=== PATIENT | female | born 1960 | race Caucasian/White ===

== ENCOUNTER 2019-12-29 10:36 | Emergency (ER) | payer OTHER, SELFPAY ==
--- NOTE | ~2019-12-29 | CT_ITS ---
EXAMINATION: CT abdomen pelvis w con INDICATION: Abdominal pain and diarrhea TECHNIQUE: Computed tomographic images of the abdomen and pelvis were obtained after the administrati on of 100 cc of Omnipaque 350 intravenous contrast. The dose-length product (DLP) was 230.76 mGy-cm. Automated exposure control and iterative reconstruction technique were employed. COMPARISON: 11/18/2013 FINDINGS: The lung bases are clear. The heart size is normal. There is a small sliding hiatal hernia. The liver, spleen, pancreas, gallbladder, and adrenal glands are normal. The kidneys are unremarkabl e. There is mild bilateral hydronephrosis, likely due to bladder distention. No pathologically enlarg ed abdominal or pelvic lymph nodes are identified. There is no free intraperitoneal gas or evidence o f bowel obstruction. There is bowel wall thickening and inflammation involving a short segment of the terminal ileum as well as the ascending colon. Changes of appendectomy are noted. There is grade 1 a nterolisthesis of L5 on S1 with bilateral L5 pars defects. A small fat-containing umbilical hernia is noted. IMPRESSION: 1. Colitis of the ascending colon with a short segment of terminal ileitis. Reviewed, dictated and finalized at location A.
[2019-12-29 10:40] VITALS: BP 110/70; PULSE 92; RESP 19; TEMP 36.9; O2SAT 97
--- NOTE | 2019-12-29 11:29 | ED.ABDPAIN ---
HPI - Abdominal Pain General Chief Complaint: Abdominal Pain Stated Complaint: aches/fever/vomiting Time Seen by Provider: 12/29/19 11:18 Source: patient Mode of arrival: ambulatory Limitations: no limitations History of Present Illness HPI narrative: Patient presents to the emergency department for crampy abdominal pain x3 days. Also reports diarrhea. Denies fever, nausea, vomiting, hematochezia, or dysuria. Related Data Home Medications Medication Instructions Recorded Confirmed levothyroxine 12/29/19 12/29/19 lorazepam 12/29/19 omeprazole 12/29/19 pravastatin 12/29/19 rizatriptan mg 12/29/19 Allergies Allergy/AdvReac Type Severity Reaction Status Date / Time Sulfa (Sulfonamide Allergy Unknown Itching Verified 12/29/19 11:13 Antibiotics) vancomycin Allergy Unknown Itching Verified 12/29/19 11:13 Review of Systems Review of Systems: Narrative: CONSTITUTIONAL: Denies fever GASTROINTESTINAL: Reports abdominal pain, diarrhea. Denies nausea, vomiting GENITOURINARY: Denies dysuria or hematuria. All systems reviewed & are unremarkable except as noted in HPI and below PMFSH Past Medical History Medical History (Updated 12/29/19 @ 15:12 by Bety Lima PA-C) History of gastroesophageal reflux (GERD) History of hyperlipidemia History of hypothyroidism History of migraine Social History Social History Smoking status: Never smoker Alcohol intake: current Gender identity (if verbalized by the patient): Female Exam Narrative: Exam Narrative: GENERAL: Well-appearing, well-nourished, and in no acute distress. HEAD: Normocephalic, atraumatic. EYES: EOMI. CHEST: Clear to auscultation. No respiratory distress. No wheezes rales or rhonchi HEART: Regular rate and rhythm. No murmur heard. Normal peripheral pulses. ABDOMEN: Soft, nondistended, normal active bowel sounds. Mild tenderness to palpation throughout the abdomen, without guarding EXTREMITIES: Normal range of motion. No edema. SKIN: Warm, dry, no rash. NEURO: No focal deficits. Alert and oriented x3. PSYCH: Normal mood and affect Course Consultations Consultation #1: poke with GI, Dr. Duggan about patient and work-up. Patient will be started on antibiotics and will follow-up in clinic. Date: 12/29/19 Time: 15:16 Vital Signs Vital signs: Vital Signs Temperature 98.4 F 12/29/19 10:40 Pulse Rate 92 12/29/19 10:40 Respiratory Rate 19 12/29/19 10:40 Blood Pressure 110/70 12/29/19 10:40 Pulse Oximetry 97 12/29/19 10:40 Temperature 98.4 F 12/29/19 10:40 Pulse Rate 92 12/29/19 10:40 Respiratory Rate 19 12/29/19 10:40 Blood Pressure 110/70 12/29/19 10:40 Pulse Oximetry 97 12/29/19 10:40 MDM - Abdominal Pain MDM Narrative Medical decision making narrative: Patient presents the emergency department for crampy abdominal pain and diarrhea x3 days. Patient is afebrile and nontoxic-appearing. CBC is without leukocytosis. Metabolic panel without concerning findings. Lactic acid is not elevated. UA with 4-6 white blood cells, but also moderate squamous epithelial cells. Likely not a clean-catch. Patient denies any urinary symptoms. CT scan of the abdomen and pelvis shows colitis of the ascending colon with a short segment of terminal ileitis. Spoke with GI, Dr. Duggan about patient and work-up. Patient will be started on antibiotics and will follow-up in clinic. Patient is stable and felt appropriate for the outpatient evaluation. She was given warnings to return to the ER Lab Data Attestation: I reviewed the patient's lab results. Result diagrams: 12/29/19 11:28 12/29/19 12:26 Labs: Lab Results 12/29/19 12/29/19 12/29/19 Range/Units 11:28 11:28 11:43 WBC 6.8 (4.5-10.0) K/mm3 RBC 4.79 (4.2-5.4) M/mm3 Hgb 15.1 H (12.0-15.0) g/dL Hct 44.2 (37.0-47.0) % MCV 92.3 (80-100) fl MCH 31.5 (26-34) pg MCHC 34.2 (32-36) g/dl R
[2019-12-29 11:44] LABS: Basophils Absolute Auto 0.1 K/mm3 (0.0-0.1); Basophils Percent Auto 0.7 % (0.2-1.2); Eosinophils Percent Auto 0.6 % (0-4.4); Hematocrit 44.2 % (37.0-47.0); Hemoglobin 15.1 g/dL (12.0-15.0); Immature Granulocyte Absolute 0.03 K/mm3 (0.00-0.031); Immature Granulocyte Percent A 0.4 % (0-0.5); Lymphocytes Absolute Auto 1.61 K/mm3 (0.9-3.2); Lymphocytes Percent Auto 23.7 % (18.3-44.2); Mean Corpuscular HGB Conc 34.2 g/dl (32-36); Mean Corpuscular Hemoglobin 31.5 pg (26-34); Mean Corpuscular Volume 92.3 fl (80-100); Mean Platelet Volume 10.5 fl (7.4-10.4); Monocytes Absolute Auto 0.7 K/mm3 (0.1-0.6); Monocytes Percent Auto 10.9 % (2.6-8.5); Neutrophils Absolute Auto 4.3 K/mm3 (1.3-6.7); Neutrophils Percent Auto 63.7 % (45.5-73.1); Platelet Count Result 198 k/mm3 (150-375); Red Blood Count 4.79 M/mm3 (4.2-5.4); White Blood Count 6.8 K/mm3 (4.5-10.0)
[2019-12-29] MEDS: SODIUM CHLORIDE 0.9% IV 1,000 ML 999 ML IV CONT (11:51)
[2019-12-29 12:01] LABS: Add Urine Microscopic? YES; Appearance Urine Clear (Clear); Bacteria Urine Trace /hpf; Bilirubin Urine Negative (Negative); Blood Urine 1+ (Negative); Color Urine Straw (Yellow); Glucose Urine UA Negative (Negative); Ketones Urine Negative (Negative); Leukocyte Esterase Ur 3+ LEU/UL (Negative); Nitrate Urine Negative (Negative); Protein Urine Negative (Negative); Specific Grav Ur 1.009 (1.001-1.035); Squamous Epithelial Cell Urine Moderate /hpf (Few); Urobilinogen Urine Negative mg/dL (<2.0)
[2019-12-29 12:10] LABS: Lactic Acid Reflex 0.9 mmol/L (0.7-2.1)
[2019-12-29 12:46] LABS: Alanine Aminotransferase 21 U/L (4-35); Albumin Level 4.2 g/dL (3.5-5.1); Alkaline Phosphatase 67 U/L (38-126); Aspartate Amino Transferase 27 U/L (14-36); Bilirubin,Total 0.4 mg/dL (0.2-1.3); Blood Urea Nitrogen 9 mg/dL (7-17); Calcium 8.8 mg/dL (8.4-10.2); Carbon Dioxide 25 mmol/L (22-30); Chloride 103 mmol/L (98-107); Estimated CRCL calculation 55 ml/min; Estimated Glomerular Filt Rate > 60; Glucose 94 mg/dL (65-105); Lipase 53 U/L (23-300); Potassium 4.1 mmol/L (3.4-5.0); Sodium 134 mmol/L (137-145)
[2019-12-29 15:33] VITALS: BP 131/79; PULSE 65; RESP 20; TEMP 36.7; O2SAT 98
== END 2019-12-29 15:34 | disposition home or self-care (01) ==
PROVIDERS: Physician Assistant; Emergency Provider Emergency Medicine; PCP Internal Medicine
DX: K52.9 Noninfective gastroenteritis and colitis, unspecified (principal); E78.5 Hyperlipidemia, unspecified; E03.9 Hypothyroidism, unspecified
CPT/HCPCS: 36415; 74177; 80053; 81001; 83605; 83690; 85025; 85055; 96361; 96365; 99284; J0131; J7030; Q9967

== ENCOUNTER → 2020-02-25 13:03 | Outpatient (CLI) | payer OTHER, SELFPAY ==
--- NOTE | ~2020-02-25 | DEXA_ITS ---
Bone Density Report Name: Janell Cisse Age: 59 Sex: Female Ethnicity: White Date of : 1960 Indication: osteopenia; height loss; hysterectomy;postmenopausal Referring Provider: Emily Thomas Study: Bone densitometry was performed. Exam Date: February 25, 2020 Accession number: [id number] Bone Density: Region BMD T-score Z-score Classification AP Spine (L1-L4) 0.874 -1.6 -0.1 Osteopenia Femoral Neck (Left) 0.685 -1.5 -0.1 Osteopenia Total Hip (Left) 0.894 -0.4 0.6 Normal Femoral Neck (Right) 0.688 -1.4 -0.1 Osteopenia Total Hip (Right) 0.862 -0.7 0.4 Normal Total Hip Mean 0.878 -0.6 0.5 Normal World Health Organization criteria for BMD impression classify patients as: Normal (T-score at or above -1.0), Osteopenia (T-score between -1.0 and -2.5), or Osteoporosis (T-score at or below -2.5). 10-year Fracture Risk(1): Major Osteoporotic Fracture 7.9% Hip Fracture 0.7% Reported Risk Factors: [place] (), Neck BMD=0.688, BMI=23.6 (1) FRAX(R) Version 3.08. Fracture probability calculated for an untreated patient. Fracture probability may be lower if the patient has received treatment. Previous Exams: Region Exam Age BMD T-score BMD Change BMD Change Date g/cm2 vs Baseline vs Previous AP Spine(L1-L4) 02/25/2020 59 0.874 -1.6 0.000 0.004 11/16/2016 56 0.870 -1.6 -0.004 -0.014 01/05/2010 49 0.884 -1.5 0.010 0.010 12/25/2007 47 0.874 -1.6 Total Hip(Left) 02/25/2020 59 0.894 -0.4 0.039* -0.017 11/16/2016 56 0.911 -0.3 0.056* 0.052* 01/05/2010 49 0.859 -0.7 0.004 0.004 12/25/2007 47 0.855 -0.7 Total Hip(Right) 02/25/2020 59 0.862 -0.7 0.015 -0.014 11/16/2016 56 0.877 -0.5 0.030* 0.035* 01/05/2010 49 0.842 -0.8 -0.005 -0.005 12/25/2007 47 0.847 -0.8 *Denotes significance at 95% confidence level, LSC for AP Spine = 0.022 g/cm2, LSC for Total Hip = 0.027 g/cm2 Clinical Information Provided by Patient: Has used the following medications: Vitamin D, Calcium Has the following medical conditions: Hysterectomy Patient maximum height was 61.5 Menopause Age: 32 No regular weight bearing exercise Drinks caffeinated beverages Onset of menses at age 11 Number of children 2 Impression: The patient has low bone ma
--- NOTE | ~2020-02-25 | MM_ITS ---
EXAMINATION: MM screening olga lidia BI w sarah HISTORY: Screening TECHNIQUE: Craniocaudal and mediolateral oblique 3-D tomosynthesis images were obtained and synthetic 2-D images were generated. CAD analysis was submitted and interpreted. COMPARISON: Comparison to multiple prior studies sequentially, with oldest reviewed study dated 02/2016. BREAST PARENCHYMAL COMPOSITION: There are scattered areas of fibroglandular density. FINDINGS: There is no evidence of suspicious mass, calcification, or architectural distortion to sugg est malignancy in either breast. There has been no suspicious interval change. IMPRESSION: 1. No mammographic evidence of malignancy. 2. Recommend routine screening mammography in one year. BI-RADS Category 1: Negative Reviewed, dictated and finalized at location A.
== END ==
PROVIDERS: PCP Internal Medicine; Visit Provider Obstetrics & Gynecology
DX: Z12.31 Encounter for screening mammogram for malignant neoplasm of breast (principal); M85.88 Other specified disorders of bone density and structure, other site; M85.852 Other specified disorders of bone density and structure, left thigh; M85.851 Other specified disorders of bone density and structure, right thigh
CPT/HCPCS: 77063; 77067; 77080

== ENCOUNTER 2020-03-20 01:10 | Outpatient (CLI) | payer OTHER, SELFPAY ==
[2020-03-20 17:59] LABS: SARS-CoV-2 RNA PCR Negative
== END 2020-03-20 01:11 | disposition home or self-care (01) ==
LOC: ANHCOVIDDT 01:11
PROVIDERS: PCP Internal Medicine; Visit Provider Internal Medicine Gastroenterology
DX: Z01.812 Encounter for preprocedural laboratory examination (principal); Z20.828 Contact with and (suspected) exposure to other viral communicable diseases
CPT/HCPCS: 87635; C9803; U0003

== ENCOUNTER 2020-03-23 00:27 | Day surgery (SDC) | payer OTHER, SELFPAY ==
[2020-03-16 14:23] VITALS: BMI 22.8
[2020-03-23 12:24] VITALS: BP 140/77; PULSE 107; RESP 16; TEMP 36.8; O2SAT 99
[2020-03-23] MEDS: LACTATED RINGERS 1,000 ML 150 ML IV CONT (12:29)
--- NOTE | 2020-03-23 13:45 | WPDANESEPPF ---
Anes - Initial Pre Proc Eval Procedure: Operation Date: 03/23/20 12:15 Proposed Procedures p Esophagogastroduodenoscopy & Colonoscopy - Bakari Ramirez MD Date/Time: 03/23/20 13:45 Surgeon: Bakari Ramirez MD Pre Op Diagnosis: Epigastric pain, Gerd, Non Infective Gastroenterit Patient Data Age: 59 Gender: F Height: 5 ft 1 in Weight: 52.8 kg Last Vital Signs Temp 98.3 F 03/23/20 12:24 Pulse 107 H 03/23/20 12:24 Resp 16 03/23/20 12:24 BP 140/77 03/23/20 12:24 Pulse Ox 99 03/23/20 12:24 Allergies Allergy/AdvReac Type Severity Reaction Status Date / Time Sulfa (Sulfonamide Allergy Unknown Itching Verified 03/23/20 12:23 Antibiotics) vancomycin Allergy Unknown Itching Verified 03/23/20 12:23 Home Medications Medication Instructions Recorded Confirmed Type levothyroxine 75 mcg PO DAILY 12/29/19 03/16/20 History lorazepam 0.5 mg PO DAILY PRN 12/29/19 03/16/20 History omeprazole 40 mg PO HS 12/29/19 03/16/20 History pravastatin 40 mg PO HS 12/29/19 03/16/20 History rizatriptan 10 mg PO DAILY PRN 12/29/19 03/16/20 History hydrocodone 5 mg-acetaminophen 325 1 tablet PO Q8H PRN 02/26/20 03/16/20 History mg tablet peg 3350-electrolytes 236 240 ml PO Q10M #4000 ml 03/03/20 03/16/20 Rx gram-22.74 gram-6.74 gram-5.86 gram solution estradiol [Estrace] 1 g VAGINAL 3XW 03/16/20 03/16/20 History Patient hx anesthesia problems: none Family hx anesthesia problems: none PMFSH Past Medical History Medical History (Updated 02/26/20 @ 09:44 by Bakari Ramirez MD) Acute colitis COVID-19 ruled out Diarrhea Epigastric pain Flu-like symptoms GERD (gastroesophageal reflux disease) History of gastroesophageal reflux (GERD) History of hyperlipidemia History of hypothyroidism History of migraine Hypothyroid Lower abdominal pain Surgical History Surgical History History of appendectomy Status post spinal disc removal Social History Social History Smoking status: Never smoker Alcohol intake: current Living arrangements: with family Gender identity (if verbalized by the patient): Female Spiritual care concerns: No Anes - Eval Final PreProcedure Day of Procedure 03/23/20 13:45 Patient weight: normal Heart: regular rate and rhythm Lungs: clear to auscultation Airway: Mallampati scale class II Neurological: alert and oriented Last oral intake: >/= 8 hours ASA classification: II Emergent: no Anesthetic plan: proceed Anesthesia type and monitoring: general GIVS and standard monitoring Informed Consent: The patient's anesthetic plan and its attendant risks and benefits were discussed with the patient/family/POA. Questions were solicited and answers provided to the satisfaction of the patient/family/POA.
--- NOTE | 2020-03-23 15:16 | WPDHPUPDATE1 ---
History and Physical Update Update Date/Time: 03/23/20 15:16 History and Physical has been reviewed, including an updated exam of the patient. There are NO changes in the patient's condition. Risks, benefits, and alternatives have been discussed and questions answered. Patient agrees to proceed with procedure.
[2020-03-23] MEDS: BENZOCAINE (*SP) 60 ML SPRAY CAN (HURRICAINE) 1 SPRAY MUCOUS MEM (16:01)
[2020-03-23 16:28] VITALS: BP 88/60; PULSE 80; RESP 20; O2SAT 97
[2020-03-23 16:38] VITALS: BP 105/68; PULSE 61; RESP 15; O2SAT 100
[2020-03-23 16:48] VITALS: BP 120/63; PULSE 60; RESP 14; O2SAT 100
== END 2020-03-23 16:58 | disposition home or self-care (01) ==
PROVIDERS: PCP Internal Medicine; Visit Provider Internal Medicine Gastroenterology
PROC: 0DJ08ZZ Inspection of Upper Intestinal Tract, Via Natural or Artificial Opening Endoscopic (ICD-10-PCS; CPT 43235; principal; 2020-03-23 12:15)
DX: Z09 Encounter for follow-up examination after completed treatment for conditions other than malignant neoplasm (principal); Z87.19 Personal history of other diseases of the digestive system; K21.9 Gastro-esophageal reflux disease without esophagitis; E03.9 Hypothyroidism, unspecified; E78.5 Hyperlipidemia, unspecified
CPT/HCPCS: 45378; 88305; J2704; J7120

== ENCOUNTER 2021-04-14 13:30 | Outpatient (RCR) | payer OTHER, SELFPAY ==
--- NOTE | 2021-03-01 14:06 | PTOPEVAL ---
INITIAL PHYSICAL THERAPY EVALUATION and PLAN OF CARE Thank you for referring Janell Cisse to [facility].? Janell is scheduled to be seen for physical therapy? 1x/week for 6 weeks. Please review, sign, date and return this plan of care JENY. I agree with and certify that the following plan of care is medically necessary. Referring Physician Date Admitting Provider: Attending Provider: Emily Thomas MD Referring Provider: *PT Outpatient Evaluation Start: 03/01/21 12:46 Freq: Status: Active Protocol: Document 03/01/21 12:43 CHELSIE (Rec: 03/01/21 14:06 CHELSIE [id number]) Therapy Assessment Status Assessment Status Assessment Status Evaluation Outpatient Past Medical History Past Medical History Source of Past Medical History Recalled from Previous Visit, Confirmed with Patient/Family Neurological History Hx Migraine Yes Cardiovascular History Hx Hypercholesterolemia Yes Respiratory History Hx Respiratory Disorders No Significant History Gastrointestinal History Hx Colitis Yes: December 2019 Hx Gastroesophageal Reflux Disease Yes Hx Hemorrhoids Yes Genitourinary History Hx Genitourinary Disorders No Significant History Musculoskeletal History Hx Arthritis Yes Hx Spinal Surgery Yes: 1999 C5-6 disc removal Hx Other Musculoskeletal Disorders Yes: spondylolithesis Hematological History Hx Hematological Disorders No Significant History Endocrine History Hx Hypothyroidism Yes Hx Other Endocrine Disorders Yes: Vasculitis HEENT History Hx Tonsillectomy Yes Hx Other HEENT Disorders Yes: Sinus surgery x2 Integumentary History Hx Shingles Yes Reproductive History Hx Hysterectomy Yes: 1989 Psychosocial History Hx Anxiety Yes Pain History Has Past Pain Affected Your Daily Life Yes: Lower back pain-chronic Anesthesia History Hx Anesthesia Reactions No Significant History Evaluation Information Problem Diagnosis herniation of rectum into vagina Onset earlier this year Subjective Information Janell reports using a ring for Query Text:As Reported By Patient/ estrogen replacement - then Family took it out - began to feel something in vaginal area. Will feel the pressure/ discomfort more times than others. Always better in the morning. Doesn't have a history of constipation - several years in the past - did notice more of a prob
--- NOTE | 2021-03-01 16:01 | PTOPEVAL ---
INITIAL PHYSICAL THERAPY EVALUATION AND PLAN OF CARE Thank you for referring Janlel Cisse to [facility].? Janell is scheduled to be seen for physical therapy? 1x/week for 6 weeks. Please review, sign, date and return this plan of care JENY. I agree with and certify that the following plan of care is medically necessary. Referring Physician Date Admitting Provider: Attending Provider: Emily Thomas MD Referring Provider: *PT Outpatient Evaluation Start: 03/01/21 12:46 Freq: Status: Active Protocol: Document 03/01/21 12:43 CHELSIE (Rec: 03/01/21 14:06 CHELSIE [id number]) Therapy Assessment Status Assessment Status Assessment Status Evaluation Outpatient Past Medical History Past Medical History Source of Past Medical History Recalled from Previous Visit, Confirmed with Patient/Family Neurological History Hx Migraine Yes Cardiovascular History Hx Hypercholesterolemia Yes Respiratory History Hx Respiratory Disorders No Significant History Gastrointestinal History Hx Colitis Yes: December 2019 Hx Gastroesophageal Reflux Disease Yes Hx Hemorrhoids Yes Genitourinary History Hx Genitourinary Disorders No Significant History Musculoskeletal History Hx Arthritis Yes Hx Spinal Surgery Yes: 1999 C5-6 disc removal Hx Other Musculoskeletal Disorders Yes: spondylolisthesis Hematological History Hx Hematological Disorders No Significant History Endocrine History Hx Hypothyroidism Yes Hx Other Endocrine Disorders Yes: Vasculitis HEENT History Hx Tonsillectomy Yes Hx Other HEENT Disorders Yes: Sinus surgery x2 Integumentary History Hx Shingles Yes Reproductive History Hx Hysterectomy Yes: 1989 Psychosocial History Hx Anxiety Yes Pain History Has Past Pain Affected Your Daily Life Yes: Lower back pain-chronic Anesthesia History Hx Anesthesia Reactions No Significant History Evaluation Information Problem Diagnosis herniation of rectum into vagina Onset earlier this year Subjective Information Janell reports using a ring for Query Text:As Reported By Patient/ estrogen replacement - then Family took it out - began to feel something in vaginal area. Will feel the pressure/ discomfort more times than others. Always better in the morning. Doesn't have a history of constipation - several years in the past - did notice more of a pro
--- NOTE | 2021-03-25 14:49 | PCPTNOTE ---
pt called and cancelled no reason given per assistant engineer.
--- NOTE | 2021-04-14 14:24 | PTOPEVAL ---
PHYSICAL THERAPY DISCHARGE SUMMARY Thank you for referring Janell Cisse to [facility].? Janell has been seen in PT x 6 visits. She has made progress towards goals set. She is to continue with her HEP on a regular basis. I agree with Janell's discharge from PT. Referring Physician Date Admitting Provider: Attending Provider: Emily Thomas MD Referring Provider: Therapy Assessment Status Assessment Status Assessment Status Discharge Evaluation Information Problem Diagnosis herniation of rectum into vagina Subjective Information Janell states that when she is Query Text:As Reported By Patient/ busier or more upright during Family the day while feel the pressure sensation in her vaginal region. Usually she tries to lie down for at least an hour at a time during the day to keep the prolapse reduced towards the end of the day. Doing okay with HEP. Increase awareness present to tighten pelvic floor prior to lifting type of activities. Pain Assessment Timing of Pain Assessment Timing of Pain Assessment Assessment Self Report Self Report Pain Level 0 Pain Score Pain Score 0: Self Report Pelvic Health Evaluation Pelvic Floor Assessment Sustained Levator Ani Strength 4/5 Quick Levator Ani Contraction in 15 8 Seconds Pelvic Health Therapy Pelvic Health Exercise Isolated Levator Ani Contraction sitting 10 ct hold/10 ct relax Query Text:Position, Hold/Relaxation x 10 reps Time, Repetitions Quick Contractions 10 reps x 4 sets Query Text:Position, Repetitions Therapeutic Ball sit- F/B/S/S Cir, CW, CCW, fig Query Text:Movement Direction, 23 august, LAQ x 15 reps ea Repetitions Elevator Techniques [address] hold x5;3fls Query Text:Repetitions, Number of down x5;variable x 5 Steps Going Up, Number of Steps Going Down Resistive 'Shh' Technique long,soft - 5 reps quick, Query Text:Quick, Hard, Long, Soft, hard - 5 reps Number of Repetitions Other Exercises standing plies - tightening Query Text:Record Sets, Repetitions, pelvic floor with knee Resistance and Position extension - reviewed Exercise Limitations Muscle Weakness Response to Exercise Increased Endurance,Increased Strength Exercise Comments discussion again in regards to function of levator ani in relation to
== END 2021-04-15 09:15 | disposition home or self-care (01) ==
LOC: ANHPT 13:30
PROVIDERS: PCP Internal Medicine; Visit Provider Obstetrics & Gynecology
DX: N81.6 Rectocele (principal)
CPT/HCPCS: 97110; 97161

== ENCOUNTER → 2021-04-19 11:00 | Outpatient (CLI) | payer OTHER, SELFPAY ==
--- NOTE | ~2021-04-19 | MM_ITS ---
EXAMINATION: MM screening olga lidia BI w sarah HISTORY: Screening TECHNIQUE: Craniocaudal and mediolateral oblique 3-D tomosynthesis images were obtained and synthetic 2-D images were generated. CAD analysis was submitted and interpreted. COMPARISON: No prior mammogram is available for comparison at this institution. BREAST PARENCHYMAL COMPOSITION: There are scattered areas of fibroglandular density. FINDINGS: Stable benign-appearing mass in the upper central aspect of the right breast allowing for d ifferences of technique. There is no evidence of suspicious mass, calcification, or architectural dis tortion to suggest malignancy in either breast. There has been no suspicious interval change. IMPRESSION: 1. No mammographic evidence of malignancy. 2. Recommend routine screening mammography in one year. BI-RADS Category 2: Benign finding(s). Reviewed, dictated and finalized at location A.
== END ==
PROVIDERS: PCP Internal Medicine; Visit Provider Obstetrics & Gynecology
DX: Z12.31 Encounter for screening mammogram for malignant neoplasm of breast (principal)
CPT/HCPCS: 77063; 77067

== ENCOUNTER → 2022-08-28 16:06 | Outpatient (CLI) | payer OTHER, SELFPAY ==
--- NOTE | ~2022-08-28 | MM_ITS ---
EXAMINATION: MM screening olga lidia BI w sarah HISTORY: Screening mammogram TECHNIQUE: Craniocaudal and mediolateral oblique 3-D tomosynthesis images were obtained and synthetic 2-D images were generated. CAD analysis was submitted and interpreted. COMPARISON: 04/19/2021, 02/25/2020, 11/15/2018 bilateral screening mammogram examinations BREAST PARENCHYMAL COMPOSITION: There are scattered areas of fibroglandular density. FINDINGS: Stable circumscribed approximately 2.7 x 5.7 mm opacity in the central right breast slightl y lateral to the mid sagittal plane. Stable circumscribed approximately 2.6 x 3.7 mm opacity in the mid to upper outer left breast. New 3 mm incompletely circumscribed opacity is noted in the inner mid left breast (craniocaudal Tomos ynthesis image 25/51); DIAGNOSTIC left mammogram and left breast ultrasound examination are recommend ed. IMPRESSION: 1. New 3 mm mass, inner left breast 2. Diagnostic left mammogram and left breast ultrasound examination are recommended BI-RADS Category 0: Incomplete: Needs additional imaging evaluation. Reviewed, dictated and finalized at location A. IMPRESSION: 1. New 3 mm mass, inner left breast 2. Diagnostic left mammogram and left breast ultrasound examination are recomme nded BI-RADS Category 0: Incomplete: Needs additional imaging evaluation.
== END ==
PROVIDERS: PCP Internal Medicine; Visit Provider Obstetrics & Gynecology
DX: Z12.31 Encounter for screening mammogram for malignant neoplasm of breast (principal)
CPT/HCPCS: 77063; 77067

== ENCOUNTER 2022-09-12 12:50 | Outpatient (CLI) | payer OTHER, SELFPAY ==
--- NOTE | ~2022-09-12 | MMUS_ITS ---
EXAMINATION: MM diagnostic olga lidia LT w sarah, US breast LT limited HISTORY: Follow-up left breast mass TECHNIQUE: Additional 3-D tomosynthesis images of the left breast were performed and synthetic 2-D im ages were generated. CAD analysis was submitted and interpreted. High resolution Limited left breast ultrasound was performed. COMPARISON: Comparison to multiple prior studies sequentially, with oldest reviewed study dated 09/05. BREAST PARENCHYMAL COMPOSITION: Breast composed of scattered areas of fibroglandular density FINDINGS: MAMMOGRAPHIC FINDINGS: There is a benign peripherally calcified nodule in the upper inner quadrant of the left breast, consi stent with oil cysts. There are no suspicious masses, calcifications or architectural distortion to s uggest malignancy. The previously noted nodule in the medial aspect of the left breast is not identif ied on the current study. ULTRASOUND: Limited left breast ultrasound: At 9:00, 1 cm from the nipple there is a peripherally calcified hypoe choic mass measuring 5 mm corresponding to the oil cysts seen on mammography. No other masses identif ied. No sonographic evidence for malignancy. IMPRESSION: 1. No evidence for malignancy in the left breast. Benign finding. 2. Routine yearly screening mammogram and regular clinical breast examination are recommended. BI-RADS Category 2: Benign finding(s). Reviewed, dictated and finalized at location A. IMPRESSION: 1. No evidence for malignancy in the left breast. Benign finding. 2. Routine yearly screening mammogram and regular clinical breast examination a re recommended. BI-RADS Category 2: Benign finding(s).
== END 2022-09-12 12:51 | disposition home or self-care (01) ==
PROVIDERS: PCP Internal Medicine; Visit Provider Student in an Organized Health Care Education/Training Program
DX: N63.20 Unspecified lump in the left breast, unspecified quadrant (principal)
CPT/HCPCS: 76642; 77061; 77065; G0279

== ENCOUNTER 2023-12-26 15:17 | Outpatient (CLI) | payer MEDICARE, SELFPAY ==
--- NOTE | ~2023-12-26 | MM_ITS ---
EXAMINATION: MM screening [facility] BI w sarah HISTORY: Screening TECHNIQUE: Craniocaudal and mediolateral oblique 3-D tomosynthesis images were obtained and synthetic 2-D images were generated. CAD analysis was submitted and interpreted. COMPARISON: Comparison to multiple prior studies sequentially, with oldest reviewed study dated 10/15. BREAST PARENCHYMAL COMPOSITION: Not dense: There are scattered areas of fibroglandular density. FINDINGS: There is no evidence of suspicious mass, calcification, or architectural distortion to sugg est malignancy in either breast. There has been no suspicious interval change. IMPRESSION: 1. No mammographic evidence of malignancy. 2. Recommend routine screening mammography in one year. BI-RADS Category 1: Negative Reviewed, dictated and finalized at location B.
== END 2023-12-26 15:18 ==
LOC: MICIMG 15:21
PROVIDERS: PCP Internal Medicine; Visit Provider Internal Medicine
DX: Z12.31 Encounter for screening mammogram for malignant neoplasm of breast (principal)
CPT/HCPCS: 77063; 77067

== ENCOUNTER 2024-06-30 12:46 | Outpatient (CLI) | payer MEDICARE, SELFPAY ==
--- NOTE | ~2024-06-30 | DEXA_ITS ---
Bone Density Report Name: LUCIE LAMB Age: 63 Sex: Female Ethnicity: White Date of : 1960 Indication: postmenopausal; screening for osteoporosis; height loss; hysterectomy; Referring Provider: BLANK, MACARIO Rendon Study: Bone densitometry was performed. Exam Date: June 30, 2024 Accession number: [id number] Bone Density: Region BMD T-score Z-score Classification AP Spine(L1-L4) 0.869 -1.6 0.2 Osteopenia Femoral Neck (Left) 0.660 -1.7 -0.2 Osteopenia Total Hip (Left) 0.877 -0.5 0.7 Normal Femoral Neck (Right) 0.683 -1.5 0.1 Osteopenia Total Hip (Right) 0.895 -0.4 0.9 Normal Total Hip Mean 0.886 -0.5 0.8 Normal World Health Organization criteria for BMD impression classify patients as: Normal (T-score at or above -1.0), Osteopenia (T-score between -1.0 and -2.5), or Osteoporosis (T-score at or below -2.5). 10-year Fracture Risk(1): Major Osteoporotic Fracture 9.6% Hip Fracture 1.1% Reported Risk Factors: [place] (), Neck BMD=0.660, BMI=25.0 (1) FRAX(R) Version 3.08. Fracture probability calculated for an untreated patient. Fracture probability may be lower if the patient has received treatment. Clinical Information Provided by Patient: Has used the following medications: Vitamin D, Calcium Has the following medical conditions: Hysterectomy Patient maximum height was 61.5 Menopause Age: 32 No regular weight bearing exercise Drinks caffeinated beverages Onset of menses at age 11 Number of children 2 Impression: The patient has low bone mass, based on the Left Femoral Neck T-score. The patient has an estimated ten-year risk of hip fracture of 1.1% and an estimated ten-year risk of major fracture of 9.6%, based on the WHO FRAX algorithm. Discussion: BONE DENSITY IS LOW AT ONE OR MORE SKELETAL SITES. This patient's lowest T-score is low at one or more skeletal sites. It meets the World Health Organization's (WHO) criteria for ?low bone mass? (T-score between -1.0 and -2.5). The patient's 10-year risk of fracture as calculated by FRAX is less than the threshold where pharmacological therapy is recommended by the National Osteoporosis Foundation (NOF). However, all treatment decisions require clinical judgment and consideration of individual patient factors, including patient preferences, comorbidities, previous drug use, risk factors not captured in the FRAX model (e.g., frailty, falls, vitamin D deficiency, increased bone turnover, interval significant decline in bone density) and possible under or overestimation of fracture risk by FRAX. The patient should follow a healthful lifestyle (good nutrition with adequate calcium and vitamin D, and appropriate weight-bearing exercise). Follow-Up: Consider repeating this study in 2 to 3 years to reassess this patient's status, or sooner if there is some new clinical indication. Reported by: YAMILA on 06/30/2024 1:20:00 PM. Reviewed, dictated and finalized at location [facility]
== END 2024-06-30 12:47 | disposition home or self-care (01) ==
LOC: ANHIMG 12:48
PROVIDERS: PCP Internal Medicine; Visit Provider Internal Medicine
DX: M81.0 Age-related osteoporosis without current pathological fracture (principal); M85.89 Other specified disorders of bone density and structure, multiple sites; Z13.820 Encounter for screening for osteoporosis
CPT/HCPCS: 77080